=== PATIENT | male | born 1990 | race Two or more races ===

== ENCOUNTER 2021-10-24 08:19 | Emergency (ER) | payer SELFPAY ==
[~2021-10-24] VITALS: Ht 165.1 cm; Wt 72.6 kg
[2021-10-24 09:00] VITALS: BP 155/92
[2021-10-24] MEDS ORDERED: IBUP800T27 PO (09:27)
[2021-10-24] MEDS ORDERED: METH750T22 PO (09:27)
== END 2021-10-24 10:20 | disposition home or self-care (01) ==
LOC: EDBD 08:19 → ER 08:19
DX: S20.219A Contusion of unspecified front wall of thorax, initial encounter (principal); S46.912A Strain of unspecified muscle, fascia and tendon at shoulder and upper arm level, left arm, initial encounter; V43.62XA Car passenger injured in collision with other type car in traffic accident, initial encounter; Y93.89 Activity, other specified; Y92.410 Unspecified street and highway as the place of occurrence of the external cause; Y99.8 Other external cause status
CPT/HCPCS: 71046